=== PATIENT | female | born 1990 | race Caucasian/White ===

== ENCOUNTER 2022-05-26 14:54 | Emergency (ER) | payer OTHER ==
[~2022-05-26] VITALS: Ht 172.7 cm; Wt 90.0 kg
[2022-05-26 15:57] VITALS: BP 127/76
[2022-05-26] MEDS ORDERED: hydrOXYzine 25 MG TAB or CAP PO ONE (16:30)
[2022-05-26] MEDS ORDERED: ONDANSETRON ODT 4 MG TAB PO ONE (16:30)
[2022-05-26] MEDS ORDERED: HYDR-3682 PO (17:38)
== END 2022-05-26 17:49 | disposition home or self-care (01) ==
LOC: ER 14:54 → EDBD 14:54 → ER 17:49
DX: F41.9 Anxiety disorder, unspecified (principal)
CPT/HCPCS: 93005; 99283; Q0162

== ENCOUNTER 2022-09-26 14:45 | Emergency (ER) | payer MEDICAID, OTHER ==
[~2022-09-26] VITALS: Ht 170.2 cm; Wt 99.1 kg
[~2022-09-26 14:45] MED LIST: HYDR-3682 PO
[2022-09-26 15:25] LABS: Basophils # (auto) 0.1 10 ^3/uL (0-0.2); Basophils % (auto) 0.6 % (0.0-2.0); Eosinophils # (auto) 0.2 10 ^3/uL (0-0.8); Hematocrit 41.4 % (36.0-46.0); Hemoglobin 14.1 g/dL (12.2-16.2); Lymphocytes # (auto) 1.9 10 ^3/uL (0.4-5.4); Mean Corpuscular Hemoglobin 27.3 pg (28.0-32.0); Mean Corpuscular Hgb Conc. 33.9 g/dL (32.0-36.0); Mean Corpuscular Volume 80.5 fL (80.0-100.0); Monocytes # (auto) 0.8 10 ^3/uL (0-1.3); Monocytes % (auto) 7.8 % (0.0-12.0); Neutrophils # (auto) 7.5 10 ^3/uL (1.6-8.6); Neutrophils % (auto) 71.6 % (37.0-80.0); Nucleated Red Blood Cells % 0.1 %; Red Blood Cells 5.14 10^6/uL (4.0-5.20); Red Cell Distribution Width 14.8 % (11.8-14.3); White Blood Cell 10.4 10^3/uL (4.4-10.8)
[2022-09-26 15:55] LABS: Calcium 8.8 mg/dL (8.5-10.1); Magnesium 2.4 mg/dL (1.6-2.6); Potassium 4.1 mmol/L (3.5-5.1)
[2022-09-26 15:59] LABS: BUN/Creatinine Ratio 17.3 (10.0-20.0); Bilirubin, Total 0.7 mg/dL (0.2-1.0); Total Protein 7.8 g/dL (6.4-8.2)
[2022-09-26 16:44] LABS: Urine Bacteria FEW /hpf (None Seen); Urine Blood 1+ /uL (Negative); Urine Clarity Clear (Clear); Urine Hyaline Cast FEW /lpf (0 - 2); Urine Protein, UAD Negative (Negative); Urine Specific Gravity 1.009 (1.001-1.035); Urine Urobilinogen Normal (Negative); Urine WBC 2 /hpf (0 - 5); Urine pH 6.5 (5.0-8.0)
[2022-09-26 16:49] LABS: Urine Color Straw (Yellow)
[2022-09-26] MEDS ORDERED: ZOFR4T PO (18:29)
[2022-09-26] MEDS ORDERED: ACET500T58 PO (18:29)
[2022-09-26] MEDS ORDERED: MECL1TAB42 PO (18:29)
[2022-09-26 18:47] VITALS: BP 146/95; PULSE 96; RESP 18; TEMP 97.6; O2SAT 98
== END 2022-09-26 18:48 | disposition home or self-care (01) ==
LOC: ER 14:45
DX: R42 Dizziness and giddiness (principal); F41.9 Anxiety disorder, unspecified
CPT/HCPCS: 36415; 70450; 80053; 81001; 83735; 83880; 84484; 85025; 93005